=== PATIENT | female | born 1960 | race Caucasian/White ===

== ENCOUNTER 2017-11-05 09:34 | Emergency (ER) | payer OTHER ==
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
[2017-11-05 11:42] VITALS: BP 103/68
== END 2017-11-05 11:42 | disposition home or self-care (01) ==
LOC: ER 09:34
DX: S82.141D Displaced bicondylar fracture of right tibia, subsequent encounter for closed fracture with routine healing (principal); M79.604 Pain in right leg; M79.1 Myalgia; W19.XXXD Unspecified fall, subsequent encounter
CPT/HCPCS: 99283

== ENCOUNTER 2017-11-12 07:43 | Day surgery (SDC) | payer OTHER ==
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
[2017-11-10 12:46] LABS: ABSOLUTE EOSINOPHILS # (AUTO) 0.1 10^3/uL (0.0-0.6); ABSOLUTE LYMPHOCYTES (AUTO) 1.2 10^3/uL (0.5-4.7); ABSOLUTE MONOCYTES (AUTO) 0.6 10^3/uL (0.1-1.4); ABSOLUTE NEUT (AUTO) 4.5 10^3/uL (1.7-8.2); BASOPHILS % (AUTO) 0.6 % (0-2); EOSINOPHILS % (AUTO) 1.4 % (0-6); HEMOGLOBIN 11.4 g/dL (12.0-15.5); LYMPHOCYTES % (AUTO) 18.9 % (13-45); MEAN CORPUSCULAR HEMOGLOBIN 32.3 pg (27.0-33.4); MEAN CORPUSCULAR HGB CONC 33.6 g/dL (32.0-36.0); MEAN CORPUSCULAR VOLUME 96 fl (80-97); MONOCYTES % (AUTO) 8.7 % (3-13); PLATELET COUNT 286 10^3/uL (150-450); RED BLOOD COUNT 3.53 10^6/uL (3.72-5.28); RED CELL DISTRIBUTION WIDTH 12.7 % (11.5-14.0); SEGMENTED NEUTROPHILS % (AUTO) 70.4 % (42-78); TOTAL CELLS COUNTED % (AUTO) 100 %; WHITE BLOOD COUNT 6.4 10^3/uL (4.0-10.5)
[2017-11-10 13:06] LABS: ANION GAP 8 (5-19); BLOOD UREA NITROGEN 11 mg/dL (7-20); CALCIUM 9.5 mg/dL (8.4-10.2); CARBON DIOXIDE 28 mmol/L (22-30); CHLORIDE 106 mmol/L (98-107); GLUCOSE 78 mg/dL (75-110); POTASSIUM 4.3 mmol/L (3.6-5.0); SODIUM 141.9 mmol/L (137-145)
[2017-11-10 13:13] LABS: APPEARANCE,URINE CLEAR; BILIRUBIN,URINE NEGATIVE (NEGATIVE); COLOR,URINE STRAW; GLUCOSE, URINE NEGATIVE (NEGATIVE); KETONES,URINE NEGATIVE (NEGATIVE); LEUKOCYTE ESTERASE,URINE NEGATIVE (NEGATIVE); NITRITE,URINE NEGATIVE (NEGATIVE); PROTEIN,URINE NEGATIVE (NEGATIVE); URINE SPECIFIC GRAVITY 1.004; UROBILINOGEN,URINE NEGATIVE mg/dL (<2.0)
--- NOTE | 2017-11-10 13:23 | EKG REPORT ---
SEVERITY:- NORMAL ECG - SINUS RHYTHM : Confirmed by: Dereje Lozano MD 10-Nov-2017 13:22:30
[~2017-11-12 07:43] MED LIST: CEFAZOLIN 2 GM/D5W RTU 2 GM/50 ML RTUPB IV PRN; CEFAZOLIN SODIUM 2 GM in NORMAL SALINE 100 ML IV PRN; LACTATED RINGERS 1000 ML IV PRN; LIDOCAINE 0.5% INJ-PF (5 MG/ML) 50 ML SDV SUBCUT PRN
[2017-11-12] MEDS ORDERED: LIDOCAINE 2% INJ-PF (20 MG/ML) 10 ML AMPUL ONE (08:07)
[2017-11-12] MEDS ORDERED: FENTANYL CITRATE INJ/PF 250 MCG/5 ML AMPULE ONE (08:07)
[2017-11-12] MEDS ORDERED: MIDAZOLAM 2 MG/2 ML INJ ONE (08:07)
[2017-11-12] MEDS ORDERED: ACETAMINOPHEN 100 ML IV ONE (08:08)
[2017-11-12] MEDS ORDERED: ONDANSETRON HCL INJ/PF 4 MG/2 ML SDV ONE (08:08)
[2017-11-12] MEDS ORDERED: PROPOFOL INJ 200 MG/20 ML VIAL IV ONE ×2 (08:08→08:18)
[2017-11-12] MEDS ORDERED: DEXAMETHASONE SOD PHOSPHATE INJ 4 MG/1 ML VIAL ONE (08:08)
[2017-11-12] MEDS ORDERED: EPHEDRINE SULFATE INJ 50 MG/1 ML AMPULE ONE (08:08)
[2017-11-12] MEDS ORDERED: PROMETHAZINE HCL INJ 25 MG/1 ML VIAL IV PRN ×2 (10:24)
[2017-11-12] MEDS ORDERED: DIPHENHYDRAMINE HCL 50 MG/ML VIAL IV PRN (10:24)
[2017-11-12] MEDS ORDERED: OXYCODONE-ACETAMINOPHEN 5-325 MG TABLET PO PRN ×4 (10:24→12:22)
[2017-11-12] MEDS ORDERED: FENTANYL CITRATE INJ/PF 100 MCG/2 ML AMPUL IV PRN ×3 (10:24)
[2017-11-12] MEDS ORDERED: MORPHINE SULFATE 10 MG/ML INJ IV PRN (10:24)
[2017-11-12] MEDS ORDERED: ONDANSETRON HCL INJ/PF 4 MG/2 ML SDV IV PRN (10:24)
[2017-11-12] MEDS ORDERED: MEPERIDINE HCL/PF INJ 25 MG/1 ML DISP.SYRIN IV PRN (10:24)
[2017-11-12] MEDS ORDERED: BUPIVACAINE HCL 0.5%-EPI 1:200000 INJ/PF 30 ML VIAL ONE (10:47)
[2017-11-12] MEDS ORDERED: FENTANYL CITRATE INJ/PF 100 MCG/2 ML AMPUL ONE (11:03)
--- NOTE | 2017-11-12 12:03 | RADIOLOGY REPORT (SQ) ---
EXAM DESCRIPTION: NO CHG FLUORO; TIBIA FIBULA RIGHT COMPLETED DATE/TIME: 11/12/2017 11:51 am REASON FOR STUDY: ORIF RIGHT TIBIAL PLATEAU FIXATION W/FLOURO IN OR S82.121A DISP FX OF LATERAL CON DYLE OF RIGHT TIBIA, INIT FOR COMPARISON: None. FLUOROSCOPY TIME: 1.0 minutes 5 images saved to PACS. TECHNIQUE: Intra-operative images acquired during surgical procedure to evaluate progress. NUMBER OF IMAGES: 5 LIMITATIONS: None. FINDINGS: Plate and screw fixation of lateral tibial plateau fracture. Alignment is anatomic. IMPRESSION: IMAGE(S) OBTAINED DURING PROCEDURE. COMMENT: Quality ID 145: Final reports for procedures using fluoroscopy that document radiation exp osure indices, or exposure time and number of fluorographic images (if radiation exposure indices are not available) Please consult full operative report of the attending physician for description of the procedure. TECHNICAL DOCUMENTATION: JOB ID: [id number] [employer]- All Rights Reserved Reading location - IP/workstation name: [email or web address]
--- NOTE | 2017-11-12 12:03 | RADIOLOGY REPORT (SQ) ---
EXAM DESCRIPTION: NO CHG FLUORO; TIBIA FIBULA RIGHT COMPLETED DATE/TIME: 11/12/2017 11:51 am REASON FOR STUDY: ORIF RIGHT TIBIAL PLATEAU FIXATION W/FLOURO IN OR S82.121A DISP FX OF LATERAL CON DYLE OF RIGHT TIBIA, INIT FOR COMPARISON: None. FLUOROSCOPY TIME: 1.0 minutes 5 images saved to PACS. TECHNIQUE: Intra-operative images acquired during surgical procedure to evaluate progress. NUMBER OF IMAGES: 5 LIMITATIONS: None. FINDINGS: Plate and screw fixation of lateral tibial plateau fracture. Alignment is anatomic. IMPRESSION: IMAGE(S) OBTAINED DURING PROCEDURE. COMMENT: Quality ID 145: Final reports for procedures using fluoroscopy that document radiation exp osure indices, or exposure time and number of fluorographic images (if radiation exposure indices are not available) Please consult full operative report of the attending physician for description of the procedure. TECHNICAL DOCUMENTATION: JOB ID: [id number] [employer]- All Rights Reserved Reading location - IP/workstation name: [email or web address]
--- NOTE | 2017-11-12 12:22 | Discharge Summary ---
Discharge Summary (SDC) - Discharge Final Diagnosis: ORIF of right lateral tibial plateau fracture Date of Surgery: 11/12/17 Discharge Date: 11/12/17 Condition: Fair Treatment or Instructions: Use knee immobilizer Crutches and nonweightbearing of right lower extremity Ice and elevate. Remove dressing in 4 days then okay to shower. Follow-up in 10-14 days. Prescriptions: Oxycodone HCl/Acetaminophen [Oxycodone-Acetaminophen 5-325] 1 - 2 each PO Q6 PRN #60 tablet PRN Reason: For Pain Referrals: DALJIT PURI MD [Primary Care Provider] - Discharge Diet: As Tolerated Respiratory Treatments at Home: Deep Breathing/Coughing Discharge Activity: No Driving, Keep Legs Elevated, No Lifting/Push/Pulling Home Care Assistance: None Needed Adaptive Devices on Discharge: Axillary Crutches, Standard Walker Report the Following to Your Physician Immediately: Shortness of Breath, Vomiting, Increase in Pain, Fever over 101 Degrees, Unusual Bleeding, Redness, Swelling, Warmth, Increased Soreness, Drainage-Yellow, Drainage-R[place], Drainage- Green, Drainage-Foul Smelling
[2017-11-12] MEDS ORDERED: KETOROLAC TROMETHAMINE 60 MG/2 ML SDV ONE (14:05)
[2017-11-12] MEDS ORDERED: SUCCINYLCHOLINE CHLORIDE INJ 200 MG/10 ML VIAL ONE (14:05)
[2017-11-12 14:47] VITALS: BP 145/86
--- NOTE | 2017-12-11 15:35 | Operative Report ---
Operative Report DATE OF SURGERY: 11/12/17 PREOPERATIVE DIAGNOSIS: Right tibial lateral condyle plateau fracture POSTOPERATIVE DIAGNOSIS: Same OPERATION: ORIF of right lateral tibial plateau fracture SURGEON: BO KING ANESTHESIA: GA TISSUE REMOVED OR ALTERED: None COMPLICATIONS: none ESTIMATED BLOOD LOSS: Less than 20 mL INTRAOPERATIVE FINDINGS: As above PROCEDURE: Patient was brought to the operating room after she received her preoperative antibiotics. She will placed in supine position with a bump under her right buttocks. A thigh tourniquet was applied to the right lower extremity. As in the right lower extremity was prepped and draped in a normal sterile surgical fashion. Timeout was done identifying the right knee is a correct site. We exsanguinate the extremity and the tourniquet was inflated to 300 mmHg. Leg was placed in a on top of the triangle legholder and we proceeded to do a curvilinear incision. This was done with a 15 blade and then dissected through the subcutaneous fat. Fascial tissue of the anterior compartment was seen and then cut longitudinally. I used a elevator to reflect the muscle off of the tibial shaft. I then dissected proximally and exposed the fracture. I then was able to lift the capsule and the lateral meniscus and tagged with suture and visualize the articular surface. I reflected 1 of the fragments of the plateau allowing me then to use an elevator to lift the articular depression. Once I was happy with the lifting the joint and taking pictures of the C-arm to verify my height I also was able then to close the fracture and hold it with a reduction clamp and take pictures once I was satisfied with my reduction I then proceeded to use a lateral locking plate. Due to the plate I make sure that was in the proper height and rotation. AP and laterals confirm confirm this and I placed pins to hold in place. I proceeded to place my 3 locking screws proximally placing the guide and then drilling appropriately and measuring the appropriate length. All 6 screws were locked and pictures taken showing proper length we then secured the plate distally using 2 not nonlocking screws and the shaft. I placed a kickstand which was a locking screw and all measured and placed with the guidance of fluoroscopy. Once again I visualize the joint to be reduced nicely and I felt like there is no need for bone grafting. With being satisfied with the reduction and fixation I then proceeded to use bulb irrigation to clean the wound and start closing mild layers. I reapproximated the anterior compartment using #1 Vicryl and was able to cover the plate successfully and close the capsule. I then proceeded to use 0 Vicryl for approximation of subcutaneous fat and then 2-0 Vicryl for the dermis. I used romeo for the skin. Xeroform 4 x 4 dressing followed by and needs bandage soft roll and Filemon bandage was applied. Tourniquet was let down and drapes were removed. Knee immobilizer was applied. Patient was then extubated and sent to PACU in stable condition
== END 2017-11-12 14:20 | disposition home or self-care (01) ==
LOC: OROUT 07:43
PROVIDERS: ATTEND Orthopaedic Surgery
PROC: 0QSG04Z Reposition Right Tibia with Internal Fixation Device, Open Approach (ICD-10-PCS; principal; 2017-11-12 10:00)
DX: S82.121A Displaced fracture of lateral condyle of right tibia, initial encounter for closed fracture (principal); V49.9XXA Car occupant (driver) (passenger) injured in unspecified traffic accident, initial encounter
CPT/HCPCS: 93005; 36415; 85025; 80048; 81001; 71046; 73590; 93010; 27535; C1713 ×5; J2250; J3490 ×2; J1100; J1885; J3010 ×2; J0330; J2405; J2704; J0690; J0131; 01392